=== PATIENT | male | born 1995 | race Caucasian/White ===

== ENCOUNTER 2023-02-14 11:34 | Emergency (ER) | payer OTHER, SELFPAY ==
[2023-02-14 11:48] VITALS: BP 154/93; PULSE 98; RESP 20; TEMP 37.1; O2SAT 99
--- NOTE | 2023-02-14 12:18 | ED.GENADULT ---
HPI - General Adult General Chief complaint: Extremity Injury, Lower Stated complaint: Right foot side of foot pain Time Seen by Provider: 02/14/23 12:19 Source: patient, RN notes reviewed and old records reviewed Mode of arrival: ambulatory Limitations: no limitations History of Present Illness HPI narrative: 27-year-old male who presents to [facility] with complaints of right lateral foot pain along the 5th metatarsal region with no known injury. Patient reports history of gout but normally flare is to ankle and to side of great toe. Patient reports that he has taken Colchicine in the past for his flares but is out of medication and his doctor is out of town,takes daily Allopurinol. MD complaint: gout flare Onset (ago): day(s) (2) Location: right and lower extremity (right lateral foot along 5th metatarsal red and painful to palpation) Severity scale (1-10): 8 (throbbing) Treatments prior to arrival: other (colchicine and allopurinol) Related Data Home Medications Medication Instructions Recorded Confirmed allopurinol 300 mg tablet 300 mg PO DAILY 02/14/23 02/14/23 colchicine 0.6 mg tablet 0.6 mg PO PRN PRN GOUT 02/14/23 02/14/23 colchicine 0.6 mg tablet mg 02/14/23 Allergies Allergy/AdvReac Type Severity Reaction Status Date / Time No Known Allergies Allergy Verified 02/14/23 12:05 Review of Systems Review of Systems: CONSTITUTIONAL: Denies fever, chills, or sweats. EYES: Denies visual changes, redness, or discharge. ENT: Denies rhinorrhea, congestion, sore throat, or otalgia. CARDIOVASCULAR: Denies chest pain, palpitations, or edema. RESPIRATORY: Denies cough or dyspnea. GASTROINTESTINAL: Denies abdominal pain, nausea, vomiting, or diarrhea. GENITOURINARY: Denies dysuria or hematuria. SKIN: Denies rash or itching. MUSCULOSKELETAL: Denies back pain,positive for right lateral foot pain, or myalgia. NEUROLOGIC: Denies headache, numbness, or weakness. PSYCHIATRIC: Denies anxiety or depression. All systems reviewed & are unremarkable except as noted in HPI and below PMFSH Past Medical History Medical History (Updated 02/16/23 @ 09:53 by Kinjal Jones NP) Gout Seasonal allergies Social History Social History (Updated 05/04/23 @ 09:16 by Kinjal Jones NP) Smoking status: Current every day smoker Tobacco type: e-cigarettes/vaping Alcohol intake: current Substance use type: does not use Gender identity (if verbalized by the patient): Male Comments At time of signature, agree with nursing past medical, surgical, social and family history. There is no relevant family history pertinent to the presenting complaint Exam Narrative: GENERAL: Well-appearing, well-nourished, and in no acute distress. HEAD: Normocephalic, atraumatic. EYES: PERRLA and EOMI. ENT: Nares clear, no rhinorrhea or epistaxis. Mucous membranes moist. NECK: Supple.no lymphadenopathy CHEST: Clear to auscultation. No respiratory distress.SAO2 99% on room air HEART: Regular rate and rhythm. No murmur heard. Normal peripheral pulses. ABDOMEN: Soft, nontender, nondistended, normal active bowel sounds. EXTREMITIES: Normal range of motion. No edema. redness with swelling and palpable pain along 5th metatarsal region with no known injury,pedal pulse strong right foot SKIN: Warm, dry, no rash. NEURO: No focal deficits. Alert and oriented x3. Course Course Emergency Course: Patient is aware of diagnosis, understands and agrees to treatment plan.? Anticipatory guidance given.? Patient agrees to follow-up as directed and is aware of reasons to seek care at the emergency department. Portions of this record may have been created with voice recognition software Level of Care: Express Care Visit Vital Signs Vital signs: Vital Signs Temperature 37.1 C 02/14/23 11:48 Pulse Rate 98 02/14/23 11:48 Respiratory Rate 20 02/14/23 11:48 Blood Pressure 154/93 H 02/14/23 11:48 Pulse Oximetry 99 02/14/23 11:48 Oxyge
== END 2023-02-14 12:51 | disposition home or self-care (01) ==
PROVIDERS: Emergency Provider Registered Nurse; PCP Physician Assistant
DX: M10.9 Gout, unspecified (principal); F17.290 Nicotine dependence, other tobacco product, uncomplicated
CPT/HCPCS: 99213; G0463